=== PATIENT | female | born 1985 | race Caucasian/White ===

== ENCOUNTER 2019-11-25 10:19 | Day surgery (SDC) | payer BC ==
[2019-11-25] MEDS ORDERED: Buffered Lidocaine 1% SYRIN* 1 ML/SYRINGE INTRADERM ONE (11:34)
[2019-11-25] MEDS ORDERED: Midazolam* 1 MG/ML 5 ML VIAL (5 MG) ONE (11:45)
[2019-11-25] MEDS ORDERED: fentaNYL* 50 MCG/ML 2 ML VIAL (100 MCG VIAL) ONE (11:45)
[2019-11-25] MEDS ORDERED: Bupivacaine 0.5%* 50 ML MDV VIAL ONE (12:23)
[2019-11-25] MEDS ORDERED: Lidocaine 1% w EPI 1:200,000* SDV 30 ML VIAL ONE (12:23)
[2019-11-25 12:27] LABS: ABS Basophils 0.1 10^3/ul (0-0.2); ABS Eosinophils 0.1 10^3/ul (0-0.6); ABS Lymphocytes 2.1 10^3/ul (1.0-4.8); ABS Monocytes 0.4 10^3/ul (0-0.8); ABS Neutrophils 2.7 10^3/ul (1.5-7.7); Eosinophil % 1.4 %; Hematocrit 39 % (35-47); Hemoglobin 13.6 g/dL (12.0-16.0); Lymphocyte % 38.7 %; Mean Corpuscular HGB Conc 35 g/dL (31-36); Mean Corpuscular Hemoglobin 29 pg (27-31); Mean Corpuscular Volume 84 fL (80-97); Mean Platelet Volume 8.1 fL (7.4-10.4); Nucleated Red Blood Cells % 0.2; Platelet Count 247 10^3/uL (150-450); Red Blood Count 4.65 10^6 /uL (3.70-4.87); Red Cell Distribution Width 15 % (10-15); White Blood Count 5.3 10^3/uL (3.5-10.8)
[2019-11-25] MEDS ORDERED: Ketorolac INJ* 30 MG/ML 1 ML VIAL ONE (13:04)
[2019-11-25] MEDS ORDERED: Ondansetron INJ* 2 MG/ML VIAL ONE (13:04)
[2019-11-25] MEDS ORDERED: Lidocaine 2% PF * 5 ML VIAL ONE (13:04)
[2019-11-25] MEDS ORDERED: Propofol* 10 MG/ML 20 ML BTL ONE (13:04)
[2019-11-25] MEDS ORDERED: HYDROmorphone INJ1* 1 MG/ML SYRINGE IV PRN (13:05)
[2019-11-25] MEDS ORDERED: oxyCODONE TAB* 5 MG TAB PO PRN (13:05)
[2019-11-25] MEDS ORDERED: Acetaminophen IV 1GM/100ML * 1,000 MG/100 ML VIAL IVPB ONE (13:05)
[2019-11-25] MEDS ORDERED: Naloxone* 0.4 MG/ML 1 ML VIAL IV PRN (13:05)
[2019-11-25] MEDS ORDERED: Acetaminophen IV 1GM/100ML * 100 ML ONE (13:58)
--- NOTE | 2019-11-25 14:29 | OP ---
OPERATIVE REPORT: DATE OF OPERATION: 11/25/19 DATE OF : 85 SURGEON: Canelo Bach MD PLUG GROWER: Dr. Barfield. ANESTHESIA: Spinal. PRE-OP DIAGNOSIS: Left ovarian dermoid cyst and torsion. POST-OP DIAGNOSIS: Left ovarian dermoid cyst and torsion. OPERATIVE PROCEDURE: Detorsion of the left ovary and left ovarian cystectomy. ESTIMATED BLOOD LOSS: 50 cc. SPECIMEN: Includes dermoid cyst. COMPLICATIONS: None. FINDINGS: On laparotomy, the left ovary was approximately 5 x 5 cm. The right ovary was 3 x 3 cm. The left ovary contained a typical dermoid cyst. There were omental adhesions to the anterior abdomi nal wall in the midline. DESCRIPTION OF PROCEDURE: The patient identified, procedure identified as a left ovarian cystectomy. The patient was taken to the operating room, prepped and draped in usual fashion in the supine posi tion under spinal anesthesia. A mini laparotomy was made through the old Pfannenstiel incision and t he keloid was cut out. It was carried down through fat, fascia, and peritoneum. The Mike retracto r was placed and a small amount of the omental adhesion was incorporated within it. The left ovary w as brought out intact through the incision. An incision was made in the ovary and the ovary was drai julien of yellow viscous fluid. A cyst wall was grasped. The cyst wall dissected off the ovarian tunica down to the level of the hilum and the cyst was excised. Unipolar cautery at 40 of coag was used to coagulate blood vessels along the hilum that were bleeding. The gap was then closed using 3-0 Vicry l in a running fashion. Good hemostasis was verified in the ovary. The other ovary was inspected. Small incisions were made and small follicle cysts that were noted to make sure they were not dermoid s, but the rest of the ovary on both sides appeared to be free of any dermoid cyst. The left ovary w as wrapped in Interceed. Again, hemostasis was verified. The Mike retractor was removed. The per itoneum was then closed using 3-0 Vicryl in a running fashion. Good hemostasis was achieved in the s ubrectus layers. The fascia was closed using 0 Polysorb in a running fashion. Good hemostasis was s een in the subcu. The space was closed using 3-0 Vicryl and the skin was closed with 4-0 Vicryl in a subcuticular fashion. Mastisol and Steri-Strips were applied. All sponge and instrument count s were correct and the patient returned to recovery room in stable condition. [id number]/[facility] #: [id number]
[2019-11-25 17:37] LABS: ABS Basophils 0.1 10^3/ul (0-0.2); ABS Eosinophils 0.1 10^3/ul (0-0.6); ABS Lymphocytes 2.6 10^3/ul (1.0-4.8); ABS Monocytes 0.7 10^3/ul (0-0.8); ABS Neutrophils 10.3 10^3/ul (1.5-7.7); Eosinophil % 0.9 %; Hematocrit 39 % (35-47); Lymphocyte % 19.2 %; Mean Corpuscular HGB Conc 33 g/dL (31-36); Mean Corpuscular Hemoglobin 28 pg (27-31); Mean Corpuscular Volume 86 fL (80-97); Mean Platelet Volume 8.1 fL (7.4-10.4); Nucleated Red Blood Cells % 0.1; Platelet Count 235 10^3/uL (150-450); Red Blood Count 4.59 10^6 /uL (3.70-4.87); Red Cell Distribution Width 15 % (10-15); White Blood Count 13.8 10^3/uL (3.5-10.8)
[2019-11-25 18:08] VITALS: BP 103/81
== END 2019-11-25 18:10 | disposition home or self-care (01) ==
LOC: OR 10:19
PROVIDERS: ATTEND Obstetrics & Gynecology
DX: D27.1 Benign neoplasm of left ovary (principal); N83.512 Torsion of left ovary and ovarian pedicle; E03.9 Hypothyroidism, unspecified
CPT/HCPCS: 36415; 81025; 85025; 86850; 86900; 86901; 88305; J1885; J2001; J2250; J2405; J2704; J3010; J3490